=== PATIENT | female | born 1975 | race Caucasian/White ===

== ENCOUNTER 2017-12-16 08:58 | Emergency (ER) | payer BC ==
[~2017-12-16] VITALS: Ht 157.5 cm; Wt 77.1 kg
[2017-12-16 09:04] VITALS: Ht 157.5 cm; Wt 77.1 kg
[2017-12-16 10:28] VITALS: BP 99/74
== END 2017-12-16 10:28 | disposition home or self-care (01) ==
LOC: ED 08:58
DX: J11.1 Influenza due to unidentified influenza virus with other respiratory manifestations (principal); E11.9 Type 2 diabetes mellitus without complications